=== PATIENT | male | born 1975 | race Caucasian/White ===

== ENCOUNTER 2017-11-03 20:00 | Inpatient (IN) | payer MEDICAID ==
[~2017-11-03] VITALS: Ht 172.7 cm; Wt 75.4 kg
[2017-11-03 20:07] VITALS: Ht 172.7 cm; Wt 75.4 kg
[2017-11-03 23:14] LABS: RED CELL DISTRIBUTION WIDTH 13.5 % (11.5-14.5)
[2017-11-03 23:17] LABS: PLATELET COUNT 487 x10^3mcL (130-400)
[2017-11-03 23:25] LABS: ALKALINE PHOSPHATASE 194 U/L (46-116); ALT/SGPT 27 U/L (16-63); AST/SGOT 33 U/L (15-37); CALCIUM 8.5 mg/dL (8.5-10.1); CARBON DIOXIDE 28.7 mmol/L (21-32); CHLORIDE SERUM 88 mmol/L (98-107); CREATININE SERUM 1.2 mg/dL (0.7-1.3); GFR1 > 60 mL/min; LIPASE 151 IU/L (73-393); POTASSIUM SERUM 4.2 mmol/L (3.5-5.1); TOTAL PROTEIN, SERUM 7.5 g/dL (6.4-8.2)
[2017-11-03 23:26] LABS: ALBUMIN 1.8 g/dL (3.4-5.0)
[2017-11-03 23:27] LABS: GLUCOSE SERUM 578 mg/dL (74-106); SODIUM SERUM 121 mmol/L (136-145)
[2017-11-03 23:44] LABS: BAND NEUTROPHIL 2 % (0-10); METAMYELOCTE 3 % (0-2); MONOCYTE 4 % (0-7); SEGMENTED NEUTROPHILS 86 % (37-75)
[2017-11-03 23:45] LABS: PLATELET MORPHOLOGY LARGE PLATELET SEEN; rbc morphology (normal/abnorm) NORMAL (NORMAL)
[2017-11-04 00:39] LABS: UA SPECIFIC GRAVITY <=1.005 (1.005-1.035); microscopic required? YES; urine erythrocyte 2+ (NEGATIVE)
[2017-11-04 01:25] VITALS: BP 138/92
[2017-11-04 02:38] LABS: MAGNESIUM 2.1 mg/dL (1.8-2.4); PHOSPHOROUS 2.7 mg/dL (2.5-4.9)
[2017-11-04 02:50] LABS: FREE T4 1.21 ng/dL (0.76-1.46); T4(THYROXINE) 4.9 ug/dL (4.7-13.3)
[2017-11-04 03:02] LABS: T3 TOTAL 0.37 ng/mL
[2017-11-04 05:30] VITALS: BP 120/71
[2017-11-04 05:46] LABS: AMPHETAMINE QUAL UR NONE DETECTED (See below)
[2017-11-04 09:37] VITALS: BP 115/68
[2017-11-04 10:57] LABS: CARBON DIOXIDE 28.1 mmol/L (21-32); CHLORIDE SERUM 96 mmol/L (98-107); GFR1 > 60 mL/min; GLUCOSE SERUM 194 mg/dL (74-106); POTASSIUM SERUM 3.7 mmol/L (3.5-5.1); SODIUM SERUM 129 mmol/L (136-145)
[2017-11-04 13:43] VITALS: BP 130/75
[2017-11-04 19:00] VITALS: BP 135/83
[2017-11-04 21:28] VITALS: BP 94/55
[2017-11-05] VITALS (9 sets, daily range): BP systolic 93–111; BP diastolic 59–73
[2017-11-05 05:40] LABS: RED CELL DISTRIBUTION WIDTH 13.5 % (11.5-14.5)
[2017-11-05 06:09] LABS: CARBON DIOXIDE 25.9 mmol/L (21-32); CHLORIDE SERUM 96 mmol/L (98-107); CREATININE SERUM 0.8 mg/dL (0.7-1.3); GFR1 > 60 mL/min; GLUCOSE SERUM 356 mg/dL (74-106); MAGNESIUM 2.2 mg/dL (1.8-2.4); PHOSPHOROUS 3.6 mg/dL (2.5-4.9); POTASSIUM SERUM 5.1 mmol/L (3.5-5.1); SODIUM SERUM 128 mmol/L (136-145)
[2017-11-05 07:18] LABS: PLATELET COUNT 403 x10^3mcL (130-400)
[2017-11-05 16:02] LABS: BAND NEUTROPHIL 6 % (0-10); METAMYELOCTE 1 % (0-2); MONOCYTE 6 % (0-7); MYELOCYTE 1 % (0-2); SEGMENTED NEUTROPHILS 81 % (37-75)
[2017-11-05 16:03] LABS: PLATELET MORPHOLOGY PLATELETS NORMAL; rbc morphology (normal/abnorm) NORMAL (NORMAL)
[2017-11-05 16:05] LABS: BASOPHIL % 0.3 % (0-2); RED CELL DISTRIBUTION WIDTH 13.3 % (11.5-14.5)
[2017-11-05 16:11] LABS: CALCIUM 7.5 mg/dL (8.5-10.1); CHLORIDE SERUM 93 mmol/L (98-107); CREATININE SERUM 1.1 mg/dL (0.7-1.3); GFR1 > 60 mL/min; GLUCOSE SERUM 332 mg/dL (74-106); POTASSIUM SERUM 3.7 mmol/L (3.5-5.1); SODIUM SERUM 127 mmol/L (136-145)
[2017-11-05 16:24] LABS: PLATELET COUNT 480 x10^3mcL (130-400)
[2017-11-05 17:58] LABS: ALKALINE PHOSPHATASE 118 U/L (46-116); ALT/SGPT 9 U/L (16-63); AST/SGOT 8 U/L (15-37); BILIRUBIN TOTAL 0.1 mg/dL (0.20-1.00); CALCIUM 6.7 mg/dL (8.5-10.1); CARBON DIOXIDE 27.4 mmol/L (21-32); CHLORIDE SERUM 94 mmol/L (98-107); CREATININE SERUM 0.9 mg/dL (0.7-1.3); GFR1 > 60 mL/min; GLUCOSE SERUM 356 mg/dL (74-106); POTASSIUM SERUM 3.8 mmol/L (3.5-5.1); SODIUM SERUM 126 mmol/L (136-145)
[2017-11-05 18:02] LABS: ALBUMIN 1.3 g/dL (3.4-5.0); TOTAL PROTEIN, SERUM 5.7 g/dL (6.4-8.2)
[2017-11-06 02:05] VITALS: BP 111/70
[2017-11-06 03:24] LABS: BASOPHIL % 0.3 % (0-2); PLATELET COUNT 386 x10^3mcL (130-400); RED CELL DISTRIBUTION WIDTH 14.4 % (11.5-14.5)
[2017-11-06 05:27] VITALS: BP 134/81
[2017-11-06 06:15] LABS: BASOPHIL % 0.4 % (0-2); PLATELET COUNT 357 x10^3mcL (130-400)
[2017-11-06 06:19] LABS: CALCIUM 6.5 mg/dL (8.5-10.1); CARBON DIOXIDE 27.5 mmol/L (21-32); CHLORIDE SERUM 97 mmol/L (98-107); CREATININE SERUM 0.8 mg/dL (0.7-1.3); GFR1 > 60 mL/min; GLUCOSE SERUM 295 mg/dL (74-106); POTASSIUM SERUM 4.1 mmol/L (3.5-5.1); SODIUM SERUM 129 mmol/L (136-145)
[2017-11-06 06:29] LABS: RED CELL DISTRIBUTION WIDTH 14.6 % (11.5-14.5)
[2017-11-06 08:15] VITALS: BP 121/71
[2017-11-06 13:03] VITALS: BP 140/87
[2017-11-06 17:50] VITALS: BP 133/82
[2017-11-06 21:12] VITALS: BP 113/70
[2017-11-07 05:54] VITALS: BP 122/78
[2017-11-07 06:53] LABS: CALCIUM 7.7 mg/dL (8.5-10.1); CARBON DIOXIDE 28.9 mmol/L (21-32); CHLORIDE SERUM 94 mmol/L (98-107); CREATININE SERUM 0.8 mg/dL (0.7-1.3); GFR1 > 60 mL/min; GLUCOSE SERUM 256 mg/dL (74-106); MAGNESIUM 1.7 mg/dL (1.8-2.4); PHOSPHOROUS 2.7 mg/dL (2.5-4.9); POTASSIUM SERUM 3.9 mmol/L (3.5-5.1); SODIUM SERUM 129 mmol/L (136-145)
[2017-11-07 06:57] LABS: BASOPHIL % 0.5 % (0-2); RED CELL DISTRIBUTION WIDTH 14.4 % (11.5-14.5)
[2017-11-07 07:09] LABS: PLATELET COUNT 442 x10^3mcL (130-400)
[2017-11-07] MEDS ORDERED: ULT50 PO (13:34)
[2017-11-07] MEDS ORDERED: BG FS (13:35)
[2017-11-07] MEDS ORDERED: LAC PO (13:37)
[2017-11-07 13:59] VITALS: BP 135/82
[2017-11-07 14:39] LABS: CALCIUM 7.1 mg/dL (8.5-10.1); CARBON DIOXIDE 28.9 mmol/L (21-32); CHLORIDE SERUM 93 mmol/L (98-107); CREATININE SERUM 0.8 mg/dL (0.7-1.3); GFR1 > 60 mL/min; GLUCOSE SERUM 310 mg/dL (74-106); POTASSIUM SERUM 3.9 mmol/L (3.5-5.1)
[2017-11-07 14:43] LABS: SODIUM SERUM 124 mmol/L (136-145)
[2017-11-07 17:49] VITALS: BP 138/84
[2017-11-07 21:50] VITALS: BP 132/82
[2017-11-08 06:05] VITALS: BP 139/82
[2017-11-08 07:04] LABS: BASOPHIL % 0.2 % (0-2)
[2017-11-08 07:09] LABS: CALCIUM 7.5 mg/dL (8.5-10.1); CARBON DIOXIDE 29.5 mmol/L (21-32); CHLORIDE SERUM 96 mmol/L (98-107); CREATININE SERUM 0.8 mg/dL (0.7-1.3); GFR1 > 60 mL/min; GLUCOSE SERUM 219 mg/dL (74-106); MAGNESIUM 1.6 mg/dL (1.8-2.4); PHOSPHOROUS 2.9 mg/dL (2.5-4.9); POTASSIUM SERUM 4.6 mmol/L (3.5-5.1); SODIUM SERUM 130 mmol/L (136-145)
[2017-11-08 07:26] LABS: PLATELET COUNT 521 x10^3mcL (130-400); RED CELL DISTRIBUTION WIDTH 14.8 % (11.5-14.5)
[2017-11-08 09:10] VITALS: BP 112/72
[2017-11-08 13:04] VITALS: BP 137/82
[2017-11-08 17:56] VITALS: BP 131/76
[2017-11-08 21:43] VITALS: BP 137/80
[2017-11-09 05:06] VITALS: BP 149/87
[2017-11-09 06:27] LABS: CALCIUM 7.9 mg/dL (8.5-10.1); CARBON DIOXIDE 27.9 mmol/L (21-32); CHLORIDE SERUM 94 mmol/L (98-107); CREATININE SERUM 0.8 mg/dL (0.7-1.3); GFR1 > 60 mL/min; GLUCOSE SERUM 240 mg/dL (74-106); POTASSIUM SERUM 4.4 mmol/L (3.5-5.1); SODIUM SERUM 128 mmol/L (136-145)
[2017-11-09 06:50] LABS: BASOPHIL % 0.5 % (0-2); RED CELL DISTRIBUTION WIDTH 14.5 % (11.5-14.5)
[2017-11-09 06:54] LABS: PLATELET COUNT 616 x10^3mcL (130-400)
[2017-11-09] MEDS ORDERED: AMOX/CLAV POT1 TAB PO (09:25)
[2017-11-09] MEDS ORDERED: METFORMIN HCL1000 MG PO (09:27)
[2017-11-09 09:36] VITALS: BP 133/77
[2017-11-09 12:08] VITALS: BP 137/86
[2017-11-09 13:52] VITALS: BP 137/86
== END 2017-11-09 16:45 | disposition home or self-care (01) | DRG 710 ==
LOC: ED 20:00 → DU 11-04 00:30
PROVIDERS: Emergency Medicine; Family Medicine; Podiatrist Foot & Ankle Surgery
PROC: 0L8P3ZZ Division of Left Lower Leg Tendon, Percutaneous Approach (ICD-10-PCS; 2017-11-04)
PROC: 0Y6N0ZB Detachment at Left Foot, Partial 2nd Ray, Open Approach (ICD-10-PCS; principal; 2017-11-04 14:30)
DX: A41.9 Sepsis, unspecified organism (principal); N17.0 Acute kidney failure with tubular necrosis; E43 Unspecified severe protein-calorie malnutrition; E11.42 Type 2 diabetes mellitus with diabetic polyneuropathy; I96 Gangrene, not elsewhere classified; R65.20 Severe sepsis without septic shock; M86.9 Osteomyelitis, unspecified; E11.65 Type 2 diabetes mellitus with hyperglycemia; E11.52 Type 2 diabetes mellitus with diabetic peripheral angiopathy with gangrene; E87.1 Hypo-osmolality and hyponatremia; R80.9 Proteinuria, unspecified; D63.8 Anemia in other chronic diseases classified elsewhere; Z68.22 Body mass index [BMI] 22.0-22.9, adult; Z87.891 Personal history of nicotine dependence
CPT/HCPCS: 36600; 82962; 84439; 94150; 97110-GP; 97116-GP; 97530-GP; 97535-GP; J1644; J1815; J2001; J2250; J2405; J2543; J2704; J3010; J3370; J3490; J7030; J7040; J7050; P9016; Q0092; Q0163

== ENCOUNTER 2018-08-16 13:16 | Inpatient (IN) | payer MEDICAID ==
[~2018-08-16] VITALS: Ht 172.7 cm; Wt 76.9 kg
[~2018-08-16 13:16] MED LIST: AMOX/CLAV POT1 TAB PO; BG FS; LAC PO; METFORMIN HCL1000 MG PO; ULT50 PO
[2018-08-16 13:31] VITALS: Ht 172.7 cm; Wt 76.9 kg
[2018-08-16 15:15] LABS: BASOPHIL % 0.3 % (0-2); PLATELET COUNT 339 x10^3mcL (130-400); RED CELL DISTRIBUTION WIDTH 13.7 % (11.5-14.5)
[2018-08-16 15:36] LABS: CALCIUM 8.4 mg/dL (8.5-10.1); CARBON DIOXIDE 26.5 mmol/L (21-32); CHLORIDE SERUM 97 mmol/L (98-107); CREATININE SERUM 1.2 mg/dL (0.7-1.3); GFR1 > 60 mL/min; GLUCOSE SERUM 120 mg/dL (74-106); POTASSIUM SERUM 3.9 mmol/L (3.5-5.1); SODIUM SERUM 132 mmol/L (136-145)
[2018-08-16 15:41] LABS: ALKALINE PHOSPHATASE 135 U/L (46-116); ALT/SGPT 31 U/L (16-63); AST/SGOT 24 U/L (15-37); BILIRUBIN TOTAL 0.46 mg/dL (0.20-1.00); TOTAL PROTEIN, SERUM 7.5 g/dL (6.4-8.2)
[2018-08-16 15:43] LABS: ALBUMIN 2.7 g/dL (3.4-5.0)
[2018-08-16 16:58] LABS: MAGNESIUM 1.6 mg/dL (1.8-2.4); PHOSPHOROUS 2.7 mg/dL (2.5-4.9)
[2018-08-16 16:59] LABS: CHOLESTEROL/HDL RATIO 3.6
[2018-08-16] MEDS ORDERED: CIPRO500 MG (17:01)
[2018-08-16] MEDS ORDERED: LIPITOR80 MG (17:01)
[2018-08-16] MEDS ORDERED: FAMOTIDINE10 MG (17:02)
[2018-08-16 17:03] LABS: T3 TOTAL 0.63 ng/mL
[2018-08-16 17:19] LABS: FREE T4 1.25 ng/dL (0.76-1.46); FREE THYROXINE INDEX 2.4 ug/dL (1.4-4.5); T4(THYROXINE) 5.9 ug/dL (4.7-13.3)
[2018-08-16 17:54] VITALS: BP 143/96
[2018-08-16 19:10] VITALS: BP 133/78
[2018-08-17 05:50] VITALS: BP 133/86
[2018-08-17 07:49] LABS: UA SPECIFIC GRAVITY <=1.005 (1.005-1.035); microscopic required? YES; urine erythrocyte 1+ (NEGATIVE)
[2018-08-17 08:56] LABS: BASOPHIL % 0.6 % (0-2); PLATELET COUNT 349 x10^3mcL (130-400); RED CELL DISTRIBUTION WIDTH 12.8 % (11.5-14.5)
[2018-08-17 09:43] LABS: CALCIUM 8.9 mg/dL (8.5-10.1); CARBON DIOXIDE 28.3 mmol/L (21-32); CHLORIDE SERUM 101 mmol/L (98-107); CREATININE SERUM 1.1 mg/dL (0.7-1.3); GFR1 > 60 mL/min; GLUCOSE SERUM 144 mg/dL (74-106); MAGNESIUM 1.7 mg/dL (1.8-2.4); PHOSPHOROUS 2.9 mg/dL (2.5-4.9); SODIUM SERUM 136 mmol/L (136-145)
[2018-08-17 09:46] VITALS: BP 114/65
[2018-08-17 12:47] VITALS: BP 125/73
[2018-08-17 17:17] VITALS: BP 149/78
[2018-08-17 19:15] VITALS: BP 138/76
[2018-08-18 06:07] VITALS: BP 145/83
[2018-08-18 06:50] LABS: CARBON DIOXIDE 28.9 mmol/L (21-32); CHLORIDE SERUM 99 mmol/L (98-107); CREATININE SERUM 1.1 mg/dL (0.7-1.3); GFR1 > 60 mL/min; GLUCOSE SERUM 226 mg/dL (74-106); MAGNESIUM 1.4 mg/dL (1.8-2.4); POTASSIUM SERUM 3.8 mmol/L (3.5-5.1); SODIUM SERUM 135 mmol/L (136-145)
[2018-08-18 08:01] LABS: PLATELET COUNT 364 x10^3mcL (130-400); RED CELL DISTRIBUTION WIDTH 14.2 % (11.5-14.5)
[2018-08-18 08:02] LABS: BASOPHIL % 0.7 % (0-2)
[2018-08-18 09:05] VITALS: BP 126/89
[2018-08-18 12:49] VITALS: BP 145/86
[2018-08-18 16:57] VITALS: BP 142/85
[2018-08-18 20:54] VITALS: BP 157/84
[2018-08-19 05:24] VITALS: BP 154/92
[2018-08-19 06:11] LABS: BASOPHIL % 0.7 % (0-2); PLATELET COUNT 368 x10^3mcL (130-400); RED CELL DISTRIBUTION WIDTH 13.7 % (11.5-14.5)
[2018-08-19 06:51] LABS: CALCIUM 8.8 mg/dL (8.5-10.1); CARBON DIOXIDE 30.8 mmol/L (21-32); CHLORIDE SERUM 99 mmol/L (98-107); GFR1 > 60 mL/min; GLUCOSE SERUM 167 mg/dL (74-106); MAGNESIUM 1.5 mg/dL (1.8-2.4); PHOSPHOROUS 3.6 mg/dL (2.5-4.9); POTASSIUM SERUM 4.6 mmol/L (3.5-5.1); SODIUM SERUM 135 mmol/L (136-145)
[2018-08-19 07:56] VITALS: BP 141/87
[2018-08-19 12:29] VITALS: BP 155/94
[2018-08-19 16:09] VITALS: BP 150/80
[2018-08-19 20:34] VITALS: BP 146/86
[2018-08-20 05:58] VITALS: BP 151/84
[2018-08-20 09:55] VITALS: BP 153/91
[2018-08-20] MEDS ORDERED: BACTRIM DS1 TAB PO (09:59)
[2018-08-20] MEDS ORDERED: LAC PO (10:00)
[2018-08-20 10:30] VITALS: BP 151/84
[2018-08-20 13:27] VITALS: BP 161/64
== END 2018-08-20 13:35 | disposition home or self-care (01) | DRG 720 ==
LOC: ED 13:16 → MU 16:20 → DU 16:20 → MU 17:30 → DU 20:59
PROVIDERS: Emergency Medicine; ADMIT Family Medicine
DX: A41.9 Sepsis, unspecified organism (principal); N17.0 Acute kidney failure with tubular necrosis; E11.621 Type 2 diabetes mellitus with foot ulcer; E87.1 Hypo-osmolality and hyponatremia; E83.42 Hypomagnesemia; E11.42 Type 2 diabetes mellitus with diabetic polyneuropathy; E44.1 Mild protein-calorie malnutrition; E11.65 Type 2 diabetes mellitus with hyperglycemia; R80.9 Proteinuria, unspecified; D63.8 Anemia in other chronic diseases classified elsewhere; Z89.432 Acquired absence of left foot; Z68.25 Body mass index [BMI] 25.0-25.9, adult; Z79.84 Long term (current) use of oral hypoglycemic drugs
CPT/HCPCS: 82962; 83880; 84439; J1815; J2543; J3370; J3475; J7030; J7040; Q0092